=== PATIENT | male | born 1985 | race Caucasian/White ===

== ENCOUNTER → 2021-04-24 | Outpatient (CLI) | payer OTHER | LOC: M RAD 06:32 | PROVIDERS: ATTEND Nurse Practitioner | DX: Q07.00 Arnold-Chiari syndrome without spina bifida or hydrocephalus (principal) ==

== ENCOUNTER → 2022-05-01 | Outpatient (REF) | LOC: M PLAIMG 10:55 | PROVIDERS: ATTEND Internal Medicine | DX: Z11.52 Encounter for screening for COVID-19 (principal) ==

== ENCOUNTER → 2023-11-06 | Outpatient (CLI) | payer OTHER | LOC: M LAB 10:42 | PROVIDERS: ATTEND Nurse Practitioner Family | DX: R19.7 Diarrhea, unspecified (principal) ==

== ENCOUNTER 2024-05-27 06:58 | Day surgery (SDC) | payer OTHER ==
[~2024-05-27] VITALS: Ht 177.8 cm; Wt 95.9 kg
[~2024-05-27 06:58] MED LIST: CETI10CA13 PO; DULO1CAP4 PO; MELO15TA28 PO
[2024-05-27] MEDS ORDERED: LIDOCAINE 2% 100MG/5ML SDV (FOR ANES.) As Ordered ONE (07:46)
[2024-05-27] MEDS ORDERED: propofoL 200 MG/20 ML VIAL As Ordered ONE (07:46)
[2024-05-27] MEDS ORDERED: GLYCOPYRROLATE INJ 0.2 MG/ML 2 ML VIAL As Ordered ONE (07:46)
[2024-05-27 08:19] VITALS: TEMP 97.5
[2024-05-27 08:40] VITALS: BP 101/59; O2SAT 95
== END 2024-05-27 08:47 | disposition home or self-care (01) ==
LOC: M OPP 06:58
PROVIDERS: ATTEND Internal Medicine Gastroenterology
DX: K58.0 Irritable bowel syndrome with diarrhea (principal); K64.8 Other hemorrhoids; L53.9 Erythematous condition, unspecified; Z79.899 Other long term (current) drug therapy; Z87.891 Personal history of nicotine dependence
CPT/HCPCS: 45380; 88305; J1596